=== PATIENT | male | born 1935 | race Caucasian/White ===

== ENCOUNTER 2017-11-23 08:36 | Outpatient (CLI) | payer MEDICARE, OTHER ==
--- NOTE | 2017-11-23 09:31 | RAD ---
RIGHT KNEE FOUR VIEWS: History: Knee pain. FINDINGS: There is a small joint effusion. 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 M oderate degenerative disease in the medial compartment. There is no acute displaced fracture or malalignment. Moderate vascular calcifications. 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 There is also a moderate naida nt effusion likely sequellae of underlying degenerative changes. POS: [facility]
== END 2017-11-23 08:37 | disposition home or self-care (01) ==
LOC: RAD-FRANK 08:36
PROVIDERS: ATTEND Nurse Practitioner Family
DX: S89.91XA Unspecified injury of right lower leg, initial encounter (principal); M25.561 Pain in right knee; M25.461 Effusion, right knee; M17.11 Unilateral primary osteoarthritis, right knee

== ENCOUNTER 2018-04-23 10:36 | Emergency (ER) | payer MEDICARE, OTHER ==
[2018-04-23] MEDS ORDERED: Bacitracin Zinc 1 Packet ONE (11:12)
== END 2018-04-23 11:52 | disposition home or self-care (01) ==
LOC: ERS 10:36
DX: T63.441A Toxic effect of venom of bees, accidental (unintentional), initial encounter (principal); I10 Essential (primary) hypertension; E78.5 Hyperlipidemia, unspecified
CPT/HCPCS: 99282

== ENCOUNTER 2018-07-27 15:21 | Emergency (ER) | payer MEDICARE, OTHER ==
[2018-07-27] MEDS ORDERED: Oxymetazoline HCl 0.05% ( 15 ML ) ONE (16:07)
[2018-07-27] MEDS ORDERED: Lisinopril 10 MG TAB ONE (16:29)
[2018-07-27 17:25] LABS: Hemoglobin 12.4 g/dL (14.0-18.0); Mean Corpuscular Hemoglobin 28.7 pg (27.0-31.0); Mean Corpuscular Volume 92.6 fL (78.0-98.0); Mean Platelet Volume 9.9 fL (7.4-10.4); Platelet Count 131 thou/uL (130-400); RBC Distribution Width 13.1 % (11.5-14.5); Red Blood Cell (RBC) Count 4.33 mill/uL (4.70-6.10)
[2018-07-27 17:30] LABS: INR-International Normal Ratio 1.1; PTT 29.9 SEC (22.9-36.1); Prothrombin Time 13.9 SEC (12.0-14.7)
[2018-07-27 17:47] LABS: Eosinophils 1 % (0-10); Lymphocytes 74 % (21-51); MDiff Complete? YES; Monocytes 1 % (0-10); Neutrophil 23 % (42-75); Ovalocytes SLIGHT = 2-5 cells (100X) (0-1/hpf); PLT Morphology Comment Appears Adequate; Polychromasia SLIGHT = 2-3 cells (100X) (0-2/hpf); Reactive Lymphocytes 1 % (0-10)
== END 2018-07-27 17:31 | disposition home or self-care (01) ==
LOC: ERS 15:21
DX: R04.0 Epistaxis (principal); E11.9 Type 2 diabetes mellitus without complications; E78.5 Hyperlipidemia, unspecified; I10 Essential (primary) hypertension; D64.9 Anemia, unspecified; Z79.899 Other long term (current) drug therapy; Z79.4 Long term (current) use of insulin; Z79.82 Long term (current) use of aspirin
CPT/HCPCS: 36415; 83880; 85025; 85610; 85730; 99285

== ENCOUNTER 2018-07-30 10:48 | Emergency (ER) | payer MEDICARE, OTHER | END 2018-07-30 12:10 | disposition home or self-care (01) | LOC: ERS 10:48 | DX: Z48.01 Encounter for change or removal of surgical wound dressing (principal); E11.9 Type 2 diabetes mellitus without complications; E78.5 Hyperlipidemia, unspecified; D64.9 Anemia, unspecified; I10 Essential (primary) hypertension; Z79.899 Other long term (current) drug therapy; Z79.4 Long term (current) use of insulin; Z79.82 Long term (current) use of aspirin | CPT/HCPCS: 99282 ==

== ENCOUNTER 2019-01-24 13:26 | Outpatient (CLI) | payer MEDICARE, OTHER ==
--- NOTE | 2019-01-24 14:26 | CT ---
CT BRAIN WITHOUT CONTRAST: HISTORY: Memory problems. FINDINGS: There are changes of cortical atrophy and chronic small vessel ischemic disease. The ventricular siz e is appropriate, and the basilar cisterns are patent. No evidence of acute infarct, hemorrhage, mid line shift, or abnormal extraaxial fluid collection is seen. The bony calvarium is intact. The visu alized paranasal sinuses and mastoid air cells are well aerated. IMPRESSION: 1. Cortical atrophy. 2. Chronic small vessel ischemic disease. 3. No CT evidence of acute intracranial process. POS: [facility]
== END 2019-01-24 13:27 | disposition home or self-care (01) ==
LOC: BICCT 13:26
PROVIDERS: ATTEND Psychiatry & Neurology Neurology
DX: R41.3 Other amnesia (principal); G31.9 Degenerative disease of nervous system, unspecified; I67.82 Cerebral ischemia
CPT/HCPCS: 70450

== ENCOUNTER 2019-08-18 11:56 | Inpatient (IN) | payer MEDICARE, OTHER ==
[2019-08-18] MEDS ORDERED: Aspirin 325 MG TAB ONE (12:46)
[2019-08-18 12:56] LABS: INR-International Normal Ratio 1.1; Mean Corpuscular HGB CONC 32.6 g/dL (32.0-36.0); Mean Corpuscular Hemoglobin 29.9 pg (27.0-31.0); Mean Corpuscular Volume 91.8 fL (78.0-98.0); Mean Platelet Volume 8.5 fL (7.4-10.4); PTT 29.8 SEC (22.9-36.1); Platelet Count 128 thou/uL (130-400); RBC Distribution Width 12.8 % (11.5-14.5); Red Blood Cell (RBC) Count 4.02 mill/uL (4.70-6.10); White Blood Cell (WBC) Count 27.3 thou/uL (4.8-10.8)
[2019-08-18 13:19] LABS: ALT (SGPT) 9 U/L (8-55); AST (SGOT) 15 U/L (5-34); Albumin 3.7 g/dL (3.4-4.8); Alkaline Phosphatase 74 U/L (40-110); Anion Gap 9 mmol/L (10-20); BUN (Urea Nitrogen) 23 mg/dL (8.4-25.7); Bilirubin, Total 1.1 mg/dL (0.2-1.2); Calc. Creatinine Clearance 0 mL/min (70-130); Calcium 8.9 mg/dL (7.8-10.44); Carbon Dioxide 27 mmol/L (23-31); Chloride 108 mmol/L (98-107); Estimated GFR-MDRD 61; Globulin 1.9 g/dL (2.4-3.5); Glucose 194 mg/dL (83-110); Potassium 4.6 mmol/L (3.5-5.1); Protein, Total 5.6 g/dL (5.8-8.1); Sodium 139 mmol/L (136-145)
[2019-08-18 13:24] LABS: Band 4 % (5-11); Elliptocytes SLIGHT = 2-5 cells (100X) (0-1/hpf); Lymphocytes 24 % (21-51); MDiff Complete? YES; Monocytes 2 % (0-10); Neutrophil 23 % (42-75); Platelet Morphology Comment Appears Decreased; Polychromasia SLIGHT = 2-3 cells (100X) (0-2/hpf); Reactive Lymphocytes 47 % (0-10); Reflex for Review?? NO; Tear Drops SLIGHT = 2-5 cells (100X) (0-1/hpf)
--- NOTE | 2019-08-18 13:57 | CT ---
Exam: Head CT without contrast HISTORY: Headache COMPARISON: 01/24/2019 FINDINGS: Hemorrhage: No intraparenchymal hemorrhage centered in the right occipital parietal region. Associate d edema. Associated sulcal effacement without midline shift. Hematoma measures 2.9 x 5.7 cm. Brain parenchyma: There is sulcal effacement and loss of pedraza-white matter differentiation in the rig ht occipital-parietal region. Remainder the cerebrum demonstrates preservation of cortical pedraza-white matter differentiation. White matter hypodensities due to chronic small vessel ischemic ch lisette. Ventricular system: Ventricles and sulci are patent and symmetric. Calvarium: Intact. Sinuses and mastoid air cells: Adequate aeration. IMPRESSION: Right cerebral parenchymal hemorrhage. Results of study discussed with Dr. Espinoza 08/18/2019 at 1:52 PM Code CR
[2019-08-18] MEDS ORDERED: Milk Of Magnesia 30 ML UDCUP PO PRN (14:53)
[2019-08-18] MEDS ORDERED: niCARdipine 25 MG in Sodium Chloride 0.9% 250 ML 250 ML IVPB PRN (14:53)
[2019-08-18] MEDS ORDERED: Mag-Al 1200 mg/1200 mg/30 ML UDCUP PO PRN (14:53)
[2019-08-18] MEDS ORDERED: Ondansetron PF 4 MG/2 ML Vial IVP PRN (14:53)
[2019-08-18] MEDS ORDERED: Labetalol HCl 100 MG/20 ML VIAL SLOW IVP PRN (14:53)
[2019-08-18] MEDS ORDERED: Dextrose 5% in Water 1,000 ML IV PRN (15:41)
[2019-08-18] MEDS ORDERED: Insulin Regular 300 UNITS/3 ML VIAL SC PRN (15:41)
[2019-08-18] MEDS ORDERED: Dextrose 50% Abboject 50 ML SYRINGE SLOW IVP PRN (15:41)
[2019-08-18] MEDS ORDERED: Loratadine 10 MG TAB PO PRN (16:15)
--- NOTE | 2019-08-18 16:29 | MRI ---
EXAM: MRI of the brain without and with contrast HISTORY: Right parieto-occipital intracranial hemorrhage COMPARISON: CT brain 08/18/2019 TECHNIQUE: Multiplanar multisequence MR images were obtained of the brain without and with IV contras t. FINDINGS: There is a large focus of slightly high T1 and high T2 signal in the right parietal-occipital lobe. T his demonstrates susceptibility artifact and is consistent with the intracranial hemorrhage. This has not changed significantly in size compared to the prior examination. There are other scattered ar eas of susceptibility artifact in the brain. These may resent other areas of hemosiderin deposition. Scattered foci of high T2/FLAIR signal in the subcortical and periventricular white matte r are likely secondary to small vessel ischemic disease. No restricted diffusion. There is a small area of enhancement along the posterior aspect of the hemorrhage measuring approxima tely 9 mm in size. No hydronephrosis. No extra-axial fluid collection. The expected flow voids are present. Corpus callosum, pituitary, and craniocervical junction are within normal limits. The calvarium and overlying soft tissues are unremarkable. The paranasal sinuses and mastoid air cells are well aerated. IMPRESSION: Multifocal areas of hemosiderin deposition may suggest amyloidosis. There is a small area of enhancem ent in the region of the acute intracranial hemorrhage. This could potentially represent a small cavernoma.
[2019-08-18] MEDS: Tamsulosin HCl 0.4 MG CAP PO SCH (20:39)
[2019-08-18] MEDS: Acetaminophen/Codeine 30-300mg Tablet PO PRN (20:39)
[2019-08-18] MEDS: Famotidine/PF 20 mg/2ml Vial SLOW IVP SCH (20:39)
[2019-08-18] MEDS: Atorvastatin Calcium 40 MG TAB PO SCH (20:40)
--- NOTE | 2019-08-18 22:15 | HP ---
HISTORY OF PRESENT ILLNESS: The patient is an 83-year-old male with a past medical history of type 2 diabetes, hypertension, hyperlipidemia, who presented to the emergency department in care of his daughter after developing some right-sided head and neck pain, some left-sided visual deficits and some clumsiness with the left upper extremity. The patient reports that these developed last night. However, the daughter was not notified about them until today. She brought her father to the emergency department for further evaluation. Noncontrast CT head was done on arrival, which is notable for an acute right-sided intracranial hemorrhage in the right parieto-occipital region. There is no mass effect or midline shift. The patient is not significantly hypertensive on arrival. His platelets are 128. His coags are normal. His labs are notable for elevated WBC at 27,000. I visited the patient at the bedside. He has a GCS of 15. His neurologic exam is notable for left-sided peripheral field deficits and dysmetria in the left upper extremity. PAST MEDICAL HISTORY: Hypertension, hyperlipidemia, type 2 diabetes. PAST SURGICAL HISTORY: Right leg surgery, prostate surgery, right eye surgery. SOCIAL HISTORY: The patient lives at home with his family. Does not smoke, drink, or use any drugs. REVIEW OF SYSTEMS: Per HPI. CURRENT MEDICATIONS: 1. Humulin. 2. Steroid. 3. Simvastatin. 4. Aspirin 81 mg. 5. Lisinopril. 6. Januvia. 7. Donepezil. ALLERGIES: HE HAS NO KNOWN DRUG ALLERGIES. PHYSICAL EXAMINATION: CONSTITUTIONAL: No acute distress. GCS 15. Oriented to person, place, and time. HEENT: Head, normocephalic and atraumatic. Eyes, pupils are equal and reactive. Extraocular movements are intact. The patient does have decreased peripheral vision noted on the left. ENT, oral mucosa is pink, intact, and moist. He has a normal voice. NECK: Nontender to palpation. No meningismus or nuchal rigidity. RESPIRATORY: Symmetric chest expansion. No evidence of dyspnea. CARDIOVASCULAR: Regular rate and rhythm. MUSCULOSKELETAL: He has free active range of motion of all extremities. No focal motor weakness. NEUROLOGIC: A and O x4. GCS 15. Normal speech. He have some dysmetria in the left upper extremity with [id number]. ASSESSMENT AND PLAN: This is an 83-year-old male, who developed some left peripheral field deficits as well as some clumsiness in the left upper extremity yesterday evening. His CT is notable for acute intracranial hemorrhage in the right parieto-occipital region. There is no significant mass effect. The patient has normal coags and platelets and no history of bleeding disorders. No cancer history reported and no obvious underlying mass. He has had a white blood cell count, which is elevated of unclear etiology, but is afebrile here in the ED. We will plan to admit the patient to the ICU for close monitoring q.1 neuro checks. I will repeat a noncontrast head CT for repeat evaluation of his intracranial hemorrhage. I will also get an MRI of the brain with and without contrast for additional evaluation although this ICH likely represent amyloid. We will plan to keep the systolic blood pressure less than 150 and stop his daily aspirin. The patient should not get any anticoagulants or any antiplatelet drugs. Discussed this plan with Dr. Hernández and we will ask the medical team to assist with medical management. Job ID: [id number] MTDD
[2019-08-19 05:48] LABS: Anion Gap 13 mmol/L (10-20); BUN (Urea Nitrogen) 22 mg/dL (8.4-25.7); Calc. Creatinine Clearance 53 mL/min (70-130); Calcium 9.3 mg/dL (7.8-10.44); Carbon Dioxide 27 mmol/L (23-31); Chloride 104 mmol/L (98-107); Estimated GFR-MDRD 61; Glucose 143 mg/dL (83-110); Potassium 4.1 mmol/L (3.5-5.1); Sodium 140 mmol/L (136-145)
[2019-08-19 06:21] LABS: Band 3 % (5-11); Hemoglobin 12.4 g/dL (14.0-18.0); Lymphocytes 47 % (21-51); MDiff Complete? YES; Mean Corpuscular HGB CONC 32.3 g/dL (32.0-36.0); Mean Corpuscular Hemoglobin 29.7 pg (27.0-31.0); Mean Platelet Volume 9.2 fL (7.4-10.4); Monocytes 4 % (0-10); Neutrophil 27 % (42-75); Platelet Count 135 thou/uL (130-400); Platelet Morphology Comment Appears Adequate; RBC Distribution Width 12.9 % (11.5-14.5); Reactive Lymphocytes 19 % (0-10); Red Blood Cell (RBC) Count 4.17 mill/uL (4.70-6.10); White Blood Cell (WBC) Count 29.6 thou/uL (4.8-10.8)
--- NOTE | 2019-08-19 08:50 | PDOC.HOSPP ---
- Subjective Encounter Date: 08/18/19 Encounter Time: 18:00 Subjective: Patient seen and examined for med mngt. Headache slightly better. No CP/SOB. No new complaints. No overnight events - Objective Vital Signs & Weight: Vital Signs (12 hours) Temp Pulse Ox 08/19/19 08:00 98.4 F 08/19/19 07:26 99 08/19/19 04:00 97.6 F 08/19/19 00:00 97.9 F Weight Weight 169 lb 15.622 oz Most Recent Monitor Data Heart Rate from ECG 57 NIBP 141/67 NIBP BP-Mean 91 Respiration from ECG 6 SpO2 95 I&O: 08/18/19 08/19/19 08/20/19 06:59 06:59 06:59 Intake Total 900 Output Total 900 0 Balance 0 0 Result Diagrams: 08/19/19 04:42 08/19/19 04:42 Additional Labs: Accuchecks 08/18/19 08/18/19 08/18/19 20:32 16:37 16:22 POC Glucose 335 H 165 H 182 H Radiology Reviewed by me: Yes (CT brain - ICH) EKG Reviewed by me: Yes (Tele SR) Hospitalist ROS - Review of Systems Respiratory: denies: cough, dry, shortness of breath, hemoptysis, SOB with excertion, pleuritic pain, sputum, wheezing, other Cardiovascular: denies: chest pain, palpitations, orthopnea, paroxysmal noc. dyspnea, edema, light headedness, other Gastrointestinal: denies: nausea, vomiting, abdominal pain, diarrhea, constipation, melena, hematochezia, other - Medication Medications: Active Medications Generic Name Dose Route Start Last Admin Trade Name Freq PRN Reason Stop Dose Admin Acetaminophen/Codeine Phosphate 1 tab 08/18/19 14:57 08/18/19 20:39 Tylenol #3 PO 1 tab Q4H PRN Administration Moderate Pain (4-6) Atorvastatin Calcium 40 mg 08/18/19 21:00 08/18/19 20:40 Lipitor PO 40 mg HS ANNA Administration Famotidine 20 mg 08/18/19 21:00 08/18/19 20:39 Pepcid SLOW IVP 20 mg Q12HR ANNA Administration Insulin Human Regular 0 units 08/18/19 15:41 08/18/19 20:44 Humulin R SC 4 unit .BEDTIME SLIDING SC PRN Administration Bedtime Correctional Scale Tamsulosin HCl 0.4 mg 08/18/19 21:00 08/18/19 20:39 Flomax PO 0.4 mg HS ANNA Administration - Exam General Appearance: NAD Heart: RRR, no gallops Respiratory: CTAB, no rales Gastrointestinal: soft, non-tender, normal bowel sounds Extremities: no edema Psychiatric: normal affect, A&O x 3 Hosp A/P - Plan DVT proph w/SCDs DM2 with diabetic retinopathy HTN BPH Chronic lymphocytosis h/o Tobacco dep Diverticulosis Dementia PLAN: Moderate sliding scale Restart Lisinopril/Statins/Flomax Cont Neurochecks Cont current PRN meds
[2019-08-19] MEDS: Famotidine/PF 20 mg/2ml Vial SLOW IVP SCH (08:54)
[2019-08-19] MEDS: Lisinopril 10 MG TAB PO SCH (08:54)
[2019-08-19] MEDS: Finasteride 5 MG TAB PO SCH (09:07)
[2019-08-19] MEDS: Donepezil HCl 5 MG TAB PO SCH (09:07)
--- NOTE | 2019-08-19 09:30 | CT ---
PRELIMINARY REPORT/[facility]/EMERGENCY AFTER HOURS PROCEDURE: Comparison made to 08/18/19. Overall hematoma appearance remains unchanged. Addendum electronically signed by Omero Carcamo M.D. on August 19, 2019 5:29:06 AM ROPE MAKER This report was discussed with Shelia Macedo RN by Jes Lazo on Aug 19, 2019 05:11:00 ROPE MAKER. Addendum electronically signed by Jes Lazo on August 19, 2019 5:11:21 AM ROPE MAKER EXAM: CT Head Without Intravenous Contrast. CLINICAL HISTORY: FOLLOW UP ICH TECHNIQUE: Axial computed tomography images of the head/brain without intravenous contrast. COMPARISON: None provided. FINDINGS: BRAIN: There is acute intraparenchymal hematoma within the right posterior parietal cortex measuring 5.8 x 3.8 cm with surrounding edema and fluid. VENTRICLES: No hydrocephalus. ORBITS: The orbits are unremarkable. SINUSES AND MASTOIDS: The paranasal sinuses and mastoid air cells are clear. SOFT TISSUES: No significant facial or scalp soft tissue swelling evident. No radiopaque foreign body is seen. BONES: No acute skull fracture. IMPRESSION: Acute right intraparenchymal hematoma with surrounding fluid. ELECTRONICALLY SIGNED BY: Omero Carcamo M.D. Aug 19, 2019 4:54:16 AM ROPE MAKER This report is intended for review by the ordering physician only, in accordance of law. If you recei ve this report in error, please call [facility] at [phone]. FINAL REPORT EMERGENCY AFTER HOURS CT BRAIN WITHOUT CONTRAST: COMPARISON: 08/18/19 at 1342 hours FINDINGS/IMPRESSION: I agree with the findings and impression given in the preliminary report per [facility] physici an. There is a right parietooccipital intracranial hemorrhage. When compared to the prior examination, th is has gotten slightly larger in size.
--- NOTE | 2019-08-19 11:02 | PRG ---
DATE OF SERVICE: 08/19/2019 SUBJECTIVE: The patient is seen and examined, I agree with Farideh Spivey's evaluation on 08/18/2019. The patient is an 83-year-old man, who presented with visual obscurity particularly on the left side and was found to have a right intracranial hemorrhage occipitally. He is alert and interactive. CT and MRI were reviewed suggesting a right parieto-occipital hemorrhage, stable on followup CT and without meaningful mass effect. MRI suggest amyloid angiopathy. 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 No need for surgical intervention. Recommend followup CT in 4 weeks. I have discussed Medicine Service will take over his primary and transfer to the Stroke for today. Job ID: [id number]
[2019-08-19] MEDS: Insulin Regular 300 UNITS/3 ML VIAL SC PRN ×2 (12:14→16:36)
[2019-08-19] MEDS ORDERED: Insulin Glargine 6 UNITS in Pre-Filled Syringe 1 EACH SC SCH (13:45)
--- NOTE | 2019-08-19 15:17 | PDOC.HOSPP ---
- Subjective Encounter Date: 08/19/19 Encounter Time: 15:16 Subjective: Patient seen and examined for med mngt. Headache improving. No new focal deficits. No new complaints. No overnight events - Objective Vital Signs & Weight: Vital Signs (12 hours) Temp Pulse Pulse BP BP BP Pulse Ox 08/19/19 12:00 98.4 F 08/19/19 09:16 73 129/64 160/82 H 08/19/19 09:10 68 76 129/64 160/82 H 08/19/19 08:54 141/67 H 08/19/19 08:00 98.4 F 08/19/19 07:26 99 08/19/19 04:00 97.6 F Weight Weight 169 lb 15.622 oz Most Recent Monitor Data Heart Rate from ECG 73 NIBP 151/71 NIBP BP-Mean 97 Respiration from ECG 8 SpO2 95 I&O: 08/18/19 08/19/19 08/20/19 06:59 06:59 06:59 Intake Total 900 240 Output Total 900 550 Balance 0 -310 Result Diagrams: 08/19/19 04:42 08/19/19 04:42 Additional Labs: Accuchecks 08/18/19 08/18/19 08/18/19 20:32 16:37 16:22 POC Glucose 335 H 165 H 182 H Radiology Reviewed by me: Yes (CT brain - ICH) EKG Reviewed by me: Yes (Tele SR) Hospitalist ROS - Review of Systems Respiratory: denies: cough, dry, shortness of breath, hemoptysis, SOB with excertion, pleuritic pain, sputum, wheezing, other Cardiovascular: denies: chest pain, palpitations, orthopnea, paroxysmal noc. dyspnea, edema, light headedness, other Gastrointestinal: denies: nausea, vomiting, abdominal pain, diarrhea, constipation, melena, hematochezia, other - Medication Medications: Active Medications Generic Name Dose Route Start Last Admin Trade Name Freq PRN Reason Stop Dose Admin Acetaminophen/Codeine Phosphate 1 tab 08/18/19 14:57 08/18/19 20:39 Tylenol #3 PO 1 tab Q4H PRN Administration Moderate Pain (4-6) Atorvastatin Calcium 40 mg 08/18/19 21:00 08/18/19 20:40 Lipitor PO 40 mg HS ANNA Administration Donepezil HCl 5 mg 08/19/19 09:00 08/19/19 09:07 Aricept PO 5 mg DAILY ANNA Administration Finasteride 5 mg 08/19/19 09:00 08/19/19 09:07 Proscar PO 5 mg DAILY ANNA Administration Insulin Glargine 6 units/ 0.06 mls @ 0 mls/hr 08/19/19 13:45 08/19/19 14:06 Miscellaneous Medication SC 08/19/19 16:00 0.06 mls NOW ANNA Administration Insulin Human Regular 0 units 08/18/19 15:41 08/19/19 12:14 Humulin R SC 4 unit .MODERATE SLIDING SC PRN Administration Moderate Correctional Scale Insulin Human Regular 0 units 08/18/19 15:41 08/18/19 20:44 Humulin R SC 4 unit .BEDTIME SLIDING SC PRN Administration Bedtime Correctional Scale Lisinopril 10 mg 08/19/19 09:00 08/19/19 08:54 Zestril PO 10 mg DAILY ANNA Administration Tamsulosin HCl 0.4 mg 08/18/19 21:00 08/18/19 20:39 Flomax PO 0.4 mg HS ANNA Administration - Exam General Appearance: NAD Heart: RRR, no gallops Respiratory: CTAB, no rales Gastrointestinal: soft, non-tender, normal bowel sounds Extremities: no edema Hosp A/P - Plan DVT proph w/SCDs ICH due to amyloid angiopathy (POA) DM2 with diabetic retinopathy HTN BPH Chronic lymphocytosis Diverticulosis Dementia h/o Tobacco dep PLAN: Cont moderate sliding scale Restart Long acting insulin in AM based on blood sugars today Cont Lisinopril/Statins/Flomax Transfer to stroke unit Cont current PRN meds
[2019-08-19] MEDS: Insulin Regular 300 UNITS/3 ML VIAL SC SCH (16:36)
--- NOTE | 2019-08-19 18:07 | CON ---
DATE OF CONSULTATION: 08/19/2019 SERVICE: Pulmonary Medicine. REASON FOR CONSULTATION: ICU patient. HISTORY OF PRESENT ILLNESS: The patient is an 83-year-old white male with past medical history significant for essentially nothing. He is in his usual state of health when he had an abrupt onset of neurologic changes. He presented to the emergency department, was discovered to have new-onset hemorrhagic lesion. He has been watched very closely and remains stable from a neurologic standpoint. Prior to this event, he was not sick in any way. He denies any current recent fevers, chills, nausea, vomiting, cough, sputum production, chest discomfort, belly problems, or hot red swollen joints, otherwise. He has a good appetite. He has been able to tolerate p.o. PAST MEDICAL HISTORY: 1. Hypertension. 2. Dyslipidemia. 3. Type 2 diabetes mellitus. 4. History of CVA. PAST SURGICAL HISTORY: 1. Right leg surgery. 2. Prostate surgery. 3. Right eye surgery. SOCIAL HISTORY: The patient does not use any alcohol, tobacco, or illicit drugs. He has no exposure to chemicals, dust, asbestos, or tuberculosis. He currently lives at home with his family. FAMILY HISTORY: Noncontributory. ALLERGIES: NO KNOWN DRUG ALLERGIES. MEDICATIONS: List of his inpatient medications were reviewed. No specific updates were made at this time. REVIEW OF SYSTEMS: General, head, ears, eyes, nose, throat, cardiovascular, respiratory, GI, , musculoskeletal, neurologic, and skin is negative except as mentioned in the HPI. PHYSICAL EXAMINATION: VITAL SIGNS: Afebrile, pulse 73, blood pressure 151/71, respirations 8, and saturation 99% on room air. GENERAL: The patient is awake and alert, in no apparent distress. LUNGS: Very good air entry. No prolonged expiratory phase or wheezing is present. There are no rhonchi or crackles present. HEART: Normal rate, regular. ABDOMEN: Soft, nontender, and nondistended. Bowel sounds are positive. MUSCULOSKELETAL: No cyanosis or clubbing. There is no pitting in bilateral lower extremities. NEUROLOGIC: He has a subtle right-sided hemianopsia. Outside of this, he really does not have much in the way of neurologic deficits in strength, or sensation. Cranial nerves II through XII are intact. LABORATORY DATA: WBC 29.6, hemoglobin 12.4, and platelets 135,000. Neutrophils are 27% on top of 3% bands. He has significant lymphocytosis with reactive lymphocytes present. His white blood cell count is at baseline. INR 1.1. Basic metabolic profile and liver function studies are completely unremarkable. CRP is less than the assay limit of 0.5. IMAGING: CT brain demonstrates a right occipital hemorrhagic lesion, which has evolved and gotten slightly larger compared to prior. ASSESSMENT: 1. Intraparenchymal hemorrhage. 2. Dementia. 3. Type 2 diabetes mellitus. DISCUSSION AND PLAN: At this point, the patient is being transitioned out of the ICU to the Stroke Unit. We will continue working to keep his systolic blood pressures under 140. Anticoagulation will be held. When he leaves the ICU, he will have no further requirements for inpatient Pulmonary or Critical Care opinion, and I will sign off. Please call with additional questions or concerns through time. 70 minutes have been devoted to this patient in various activities. I personally reviewed all imaging studies and laboratory data noted within this document. For fifty percent of this time, I was interacting with the patient at the bedside or coordinating care with the care team. For the remainder of the time I was immediately available to the patient in the hospital unit. Job ID: [id number] MTDD
[2019-08-19] MEDS: Senokot S 8.6-50 MG TAB PO SCH (22:21)
[2019-08-19] MEDS: Tamsulosin HCl 0.4 MG CAP PO SCH (22:21)
[2019-08-19] MEDS: Acetaminophen 325 MG TAB PO PRN (22:21)
[2019-08-19] MEDS: Atorvastatin Calcium 40 MG TAB PO SCH (22:21)
[2019-08-20] MEDS: Acetaminophen 325 MG TAB PO PRN (06:29)
[2019-08-20] MEDS: Insulin Regular 300 UNITS/3 ML VIAL SC PRN ×2 (06:33→11:50)
[2019-08-20] MEDS: Insulin Regular 300 UNITS/3 ML VIAL SC SCH ×4 (07:59→20:35)
[2019-08-20] MEDS: Famotidine 20 MG TAB PO SCH (08:25)
[2019-08-20] MEDS: Lisinopril 10 MG TAB PO SCH (08:25)
[2019-08-20] MEDS: Senokot S 8.6-50 MG TAB PO SCH ×2 (08:26→20:35)
[2019-08-20] MEDS: Finasteride 5 MG TAB PO SCH (08:26)
[2019-08-20] MEDS: Donepezil HCl 5 MG TAB PO SCH (08:32)
[2019-08-20] MEDS: Insulin Glargine 6 UNITS in Pre-Filled Syringe 1 EACH SC SCH (09:08)
[2019-08-20] MEDS: Acetaminophen/Codeine 30-300mg Tablet PO PRN (10:20)
--- NOTE | 2019-08-20 12:49 | PRG ---
DATE OF SERVICE: 08/20/2019 SERVICE: Pulmonary Medicine. INTERVAL HISTORY: The patient is doing great from respiratory standpoint. Mentation parker, things are basically at baseline. He has a fairly dense left hemianopia. Otherwise, there has been no interval change to his condition. Neurologically, he remains stable. PHYSICAL EXAMINATION: VITAL SIGNS: Afebrile, pulse 68, blood pressure 142/64, respirations 17, and saturation 96% on room air. GENERAL: The patient is awake and alert, in no apparent distress. LUNGS: Decent air entry. No prolonged expiratory phase or wheezing is appreciated. HEART: Normal rate and regular. ABDOMEN: Soft, nontender, and nondistended. Bowel sounds are positive. MUSCULOSKELETAL: No cyanosis or clubbing. There is no pitting in the bilateral lower extremities. NEUROLOGIC: He has a left-sided hemianopsia. Otherwise, it is nonfocal. ASSESSMENT: 1. Intraparenchymal hemorrhage of the right occipital region. 2. Dementia. 3. Type 2 diabetes mellitus. 4. Leukocytosis, chronic. DISCUSSION AND PLAN: The patient is stable for transition out of the ICU to the stroke unit. When he leaves the ICU, he will have no further requirements for inpatient Pulmonary/Critical Care opinion, and I will sign off. Aggressive mobilization efforts will be continued. If he remains in this location, I will continue to follow. Job ID: [id number]
[2019-08-20] MEDS: Atorvastatin Calcium 40 MG TAB PO SCH (20:35)
[2019-08-20] MEDS: Tamsulosin HCl 0.4 MG CAP PO SCH (20:35)
--- NOTE | 2019-08-20 22:52 | PDOC.HOSPP ---
- Subjective Encounter Date: 08/20/19 Encounter Time: 10:30 Subjective: Patient seen and examined for ICH. No CP. Headache improving. No new complaints. No overnight events - Objective Vital Signs & Weight: Vital Signs (12 hours) Temp Pulse Ox 08/20/19 20:00 99 08/20/19 12:00 98.3 F Weight Weight 168 lb 13.985 oz Most Recent Monitor Data Heart Rate from ECG 76 NIBP 125/51 NIBP BP-Mean 75 Respiration from ECG 18 SpO2 95 I&O: 08/19/19 08/20/19 08/21/19 06:59 06:59 06:59 Intake Total 900 780 960 Output Total 900 1100 625 Balance 0 -320 335 Result Diagrams: 08/19/19 04:42 08/19/19 04:42 Additional Labs: Accuchecks 08/19/19 23:44 POC Glucose 173 H EKG Reviewed by me: Yes (Tele SR) Hospitalist ROS - Review of Systems Respiratory: denies: cough, dry, shortness of breath, hemoptysis, SOB with excertion, pleuritic pain, sputum, wheezing, other Cardiovascular: denies: chest pain, palpitations, orthopnea, paroxysmal noc. dyspnea, edema, light headedness, other Gastrointestinal: denies: nausea, vomiting, abdominal pain, diarrhea, constipation, melena, hematochezia, other - Medication Medications: Active Medications Generic Name Dose Route Start Last Admin Trade Name Freq PRN Reason Stop Dose Admin Acetaminophen 650 mg 08/18/19 14:58 08/20/19 06:29 Tylenol PO 650 mg Q6H PRN Administration Pain Acetaminophen/Codeine Phosphate 1 tab 08/18/19 14:57 08/20/19 10:20 Tylenol #3 PO 1 tab Q4H PRN Administration Moderate Pain (4-6) Atorvastatin Calcium 40 mg 08/18/19 21:00 08/20/19 20:35 Lipitor PO 40 mg HS ANNA Administration Donepezil HCl 5 mg 08/19/19 09:00 08/20/19 08:32 Aricept PO 5 mg DAILY ANNA Administration Famotidine 20 mg 08/20/19 09:00 08/20/19 08:25 Pepcid PO 20 mg DAILY ANNA Administration Finasteride 5 mg 08/19/19 09:00 08/20/19 08:26 Proscar PO 5 mg DAILY ANNA Administration Insulin Glargine 6 units/ 0.06 mls @ 0 mls/hr 08/20/19 09:00 08/20/19 09:08 Miscellaneous Medication SC 0.06 mls QAM ANNA Administration Insulin Human Regular 0 units 08/18/19 15:41 08/20/19 11:50 Humulin R SC 4 unit .MODERATE SLIDING SC PRN Administration Moderate Correctional Scale Insulin Human Regular 0 units 08/18/19 15:41 08/18/19 20:44 Humulin R SC 4 unit .BEDTIME SLIDING SC PRN Administration Bedtime Correctional Scale Insulin Human Regular 2 units 08/19/19 17:00 08/20/19 20:35 Humulin R SC 2 unit AC ANNA Administration Lisinopril 10 mg 08/19/19 09:00 08/20/19 08:25 Zestril PO 10 mg DAILY ANNA Administration Senna/Docusate Sodium 1 tab 08/19/19 21:00 08/20/19 20:35 Senokot S PO 1 tab BID ANNA Administration Tamsulosin HCl 0.4 mg 08/18/19 21:00 08/20/19 20:35 Flomax PO 0.4 mg HS ANNA Administration - Exam General Appearance: NAD Heart: RRR, no gallops Respiratory: CTAB, no rales Gastrointestinal: soft, non-distended Extremities: no edema Neurological: no new deficit Hosp A/P - Plan DVT proph w/SCDs ICH due to amyloid angiopathy (POA) DM2 with diabetic retinopathy HTN BPH Chronic lymphocytosis Diverticulosis Dementia h/o Tobacco dep PLAN: Cont Lisinopril/Statins/Flomax Cont Lantus Cont moderate sliding scale Cont other meds Await stroke unit bed Cont current PRN meds
[2019-08-21] MEDS: Insulin Regular 300 UNITS/3 ML VIAL SC PRN ×3 (05:57→16:59)
[2019-08-21] MEDS: Finasteride 5 MG TAB PO SCH (08:33)
[2019-08-21] MEDS: Lisinopril 10 MG TAB PO SCH (08:33)
[2019-08-21] MEDS: Donepezil HCl 5 MG TAB PO SCH (08:33)
[2019-08-21] MEDS: Insulin Glargine 6 UNITS in Pre-Filled Syringe 1 EACH SC SCH (08:34)
[2019-08-21] MEDS: Famotidine 20 MG TAB PO SCH (08:34)
[2019-08-21] MEDS: Senokot S 8.6-50 MG TAB PO SCH ×2 (08:34→21:03)
[2019-08-21] MEDS: Insulin Regular 300 UNITS/3 ML VIAL SC SCH ×2 (11:57→16:59)
--- NOTE | 2019-08-21 15:37 | PRG ---
DATE OF SERVICE: 08/21/2019 SERVICE: Pulmonary Medicine. INTERVAL HISTORY: The patient is doing really quite well from respiratory standpoint. He is little bit more somnolent today. This started after he got a dose of codeine. Otherwise, there has been no more change to his condition. He has chronic neck discomfort. Unfortunately, we can give what he typically takes at home because of his anti-platelet effect. PHYSICAL EXAMINATION: VITAL SIGNS: Afebrile. Pulse 86, blood pressure 139/77, respirations 15, saturation 96%, currently on room air. GENERAL: The patient is somnolent, but he wakes up comfortably. He follows all commands and does not appear to be in any distress. Lungs: Wonderful air entry. No prolonged expiratory phase. Dependent crackles are appreciated. HEART: Normal rate and regular. ABDOMEN: Soft, nontender, nondistended. Bowel sounds are positive. MUSCULOSKELETAL: No cyanosis or clubbing. No pitting in the bilateral lower Extremities. NEUROLOGIC: Grossly nonfocal outside of his left hemianopsia. ASSESSMENT: 1. Intraparenchymal hemorrhage of the right occipital region. 2. Dementia. 3. Type 2 diabetes mellitus. 4. Leukocytosis, chronic. DISCUSSION AND PLAN: The patient is stable for transition out of the ICU or even discharge home. When he leaves the ICU, he will have no further requirements for inpatient Pulmonary or Critical Care opinion, and I will sign off. Please call with additional questions or concerns through time. Job ID: [id number]
[2019-08-21] MEDS: Atorvastatin Calcium 40 MG TAB PO SCH (21:03)
[2019-08-21] MEDS: Tamsulosin HCl 0.4 MG CAP PO SCH (21:03)
[2019-08-22 06:33] VITALS: BMI 25.9
[2019-08-22] MEDS: Finasteride 5 MG TAB PO SCH (08:24)
[2019-08-22] MEDS: Lisinopril 10 MG TAB PO SCH (08:24)
[2019-08-22] MEDS: Famotidine 20 MG TAB PO SCH (08:24)
[2019-08-22] MEDS: Donepezil HCl 5 MG TAB PO SCH (08:24)
[2019-08-22] MEDS: Senokot S 8.6-50 MG TAB PO SCH (08:25)
[2019-08-22] MEDS: Insulin Regular 300 UNITS/3 ML VIAL SC SCH ×2 (08:47→10:36)
--- NOTE | 2019-08-22 09:09 | PDOC.HOSPP ---
- Subjective Encounter Date: 08/21/19 Encounter Time: 15:00 Subjective: Patient seen and examined for ICH. Intermittent confusion. No new complaints. No overnight events - Objective Vital Signs & Weight: Vital Signs (12 hours) Temp Pulse Resp BP BP Pulse Ox 08/22/19 08:24 167/78 H 08/22/19 07:49 97.9 F 69 18 160/74 H 96 08/22/19 07:39 96 08/22/19 04:00 97.7 F 68 17 160/74 H 97 Weight Weight 165 lb 4.8 oz Most Recent Monitor Data Heart Rate from ECG 75 NIBP 155/73 NIBP BP-Mean 100 Respiration from ECG 15 SpO2 95 I&O: 08/21/19 08/22/19 08/23/19 06:59 06:59 06:59 Intake Total 1020 720 Output Total 625 650 Balance 395 70 Result Diagrams: 08/19/19 04:42 08/19/19 04:42 Additional Labs: Accuchecks 08/22/19 08/21/19 08/21/19 04:03 21:05 15:17 POC Glucose 165 H 129 H 240 H 08/21/19 08/21/19 08/20/19 11:34 05:59 20:36 POC Glucose 225 H 208 H 195 H 08/20/19 08/20/19 08/20/19 16:06 11:48 06:36 POC Glucose 149 H 230 H 204 H EKG Reviewed by me: Yes (Tele SR) Hospitalist ROS - Review of Systems Respiratory: denies: cough, dry, shortness of breath, hemoptysis, SOB with excertion, pleuritic pain, sputum, wheezing, other Cardiovascular: denies: chest pain, palpitations, orthopnea, paroxysmal noc. dyspnea, edema, light headedness, other - Medication Medications: Active Medications Generic Name Dose Route Start Last Admin Trade Name Freq PRN Reason Stop Dose Admin Acetaminophen 650 mg 08/18/19 14:58 08/20/19 06:29 Tylenol PO 650 mg Q6H PRN Administration Pain Acetaminophen/Codeine Phosphate 1 tab 08/18/19 14:57 08/20/19 10:20 Tylenol #3 PO 1 tab Q4H PRN Administration Moderate Pain (4-6) Atorvastatin Calcium 40 mg 08/18/19 21:00 08/21/19 21:03 Lipitor PO 40 mg HS ANNA Administration Donepezil HCl 5 mg 08/19/19 09:00 08/22/19 08:24 Aricept PO 5 mg DAILY ANNA Administration Famotidine 20 mg 08/20/19 09:00 08/22/19 08:24 Pepcid PO 20 mg DAILY ANNA Administration Finasteride 5 mg 08/19/19 09:00 08/22/19 08:24 Proscar PO 5 mg DAILY ANNA Administration Insulin Glargine 6 units/ 0.06 mls @ 0 mls/hr 08/20/19 09:00 08/21/19 08:34 Miscellaneous Medication SC 0.06 mls QAM ANNA Administration Insulin Human Regular 0 units 08/18/19 15:41 08/21/19 16:59 Humulin R SC 4 unit .MODERATE SLIDING SC PRN Administration Moderate Correctional Scale Insulin Human Regular 0 units 08/18/19 15:41 08/18/19 20:44 Humulin R SC 4 unit .BEDTIME SLIDING SC PRN Administration Bedtime Correctional Scale Insulin Human Regular 2 units 08/19/19 17:00 08/22/19 08:47 Humulin R SC 2 unit AC ANNA Administration Lisinopril 10 mg 08/19/19 09:00 08/22/19 08:24 Zestril PO 10 mg DAILY ANNA Administration Senna/Docusate Sodium 1 tab 08/19/19 21:00 08/22/19 08:25 Senokot S PO Not Given BID ANNA Tamsulosin HCl 0.4 mg 08/18/19 21:00 08/21/19 21:03 Flomax PO 0.4 mg HS ANNA Administration - Exam General Appearance: NAD Heart: RRR, no gallops Respiratory: CTAB, no rales Gastrointestinal: soft, non-tender, normal bowel sounds Extremities: no edema Neurological: no new deficit Hosp A/P - Plan DVT proph w/SCDs 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
[2019-08-22] MEDS: Insulin Glargine 6 UNITS in Pre-Filled Syringe 1 EACH SC SCH (09:39)
[2019-08-22] MEDS: Insulin Regular 300 UNITS/3 ML VIAL SC PRN (10:32)
[2019-08-22 13:59] VITALS: BP 125/70
[2019-08-22 16:09] VITALS: TEMP 97.5
--- NOTE | 2019-08-23 08:43 | DIS ---
DATE OF ADMISSION: 08/18/2019 DATE OF DISCHARGE: 08/22/2019 DISCHARGE DISPOSITION: To inpatient rehabilitation. FOLLOWUP: 1. Follow up with primary care physician, Dr. Chichi Roach in 1 week. 2. Follow up with Dr. Tan as scheduled. 3. Follow up with Dr. Hernández in 2 weeks. The patient was seen and examined on the day of discharge. Denies any new complaints. DISCHARGE MEDICATIONS: 1. Cetirizine as needed. 2. Aricept 5 mg daily. 3. Ferrous sulfate 325 mg daily. 4. Finasteride 5 mg daily. 5. Lisinopril 10 mg daily. 6. Simvastatin 80 mg daily. 7. Flomax 0.4 mg daily. 8. Pepcid 20 mg daily. 9. Lantus 6 units daily. 10. Insulin regular 2 units with each meal. 11. Senokot-S one tablet b.i.d.. SIGNIFICANT LABORATORY DATA: WBC 27.3 with platelets 128. PT, INR, and PTT normal range. Sodium 139, potassium 4.6, BUN 23, and creatinine 1.14. Troponin was negative. CT scan of the brain showed right cerebral parenchymal hemorrhage. MRI of the brain with and without contrast showed multifocal areas of hemosiderin deposition that may suggest amyloidosis. There was a small area of enhancement in the region of acute intracranial hemorrhage. This could potentially represent a small cavernoma. INPATIENT SCRAP DROP OPERATOR: 1. Critical Care, Dr. Mares. 2. Hospitalist Team. BRIEF HOSPITAL COURSE: The patient is an 83-year-old male with dementia, presented to the hospital on 18 August 2019 with right-sided head and neck pain along with some visual deficit and questionable left-sided weakness. His workup was consistent with intracranial hemorrhage. He was admitted by Neurosurgery team to the Intensive Care Unit. Hospitalist Team was consulted for medical management. He was managed conservatively. According to Neurosurgery, his intracranial hemorrhage was secondary to amyloid angiopathy. He will need a repeat CT scan in 4 weeks. He is stable to discharge to inpatient rehabilitation. FINAL DIAGNOSES: 1. 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 2. Diabetes mellitus type 2 with diabetic retinopathy. 3. Hypertension. 4. Benign prostatic hypertrophy. 5. Chronic lymphocytosis. 6. Diverticulosis. 7. Dementia. 8. History of tobacco abuse. TIME SPENT: Total time coordinating the discharge of this patient was 36 minutes. Job ID: [id number]
== END 2019-08-22 17:58 | DRG 546 ==
LOC: ERS 11:56 → CCU 15:17
PROVIDERS: ADMIT Neurological Surgery; ATTEND Neurological Surgery
DX: E85.4 Organ-limited amyloidosis (principal); I62.9 Nontraumatic intracranial hemorrhage, unspecified; F03.90 Unspecified dementia, unspecified severity, without behavioral disturbance, psychotic disturbance, mood disturbance, and anxiety; I68.0 Cerebral amyloid angiopathy; D72.829 Elevated white blood cell count, unspecified; E78.5 Hyperlipidemia, unspecified; I10 Essential (primary) hypertension; D64.9 Anemia, unspecified; D72.820 Lymphocytosis (symptomatic); N40.0 Benign prostatic hyperplasia without lower urinary tract symptoms; K57.90 Diverticulosis of intestine, part unspecified, without perforation or abscess without bleeding; E11.319 Type 2 diabetes mellitus with unspecified diabetic retinopathy without macular edema; Z79.4 Long term (current) use of insulin
CPT/HCPCS: 36415; 36416; 70450; 70553; 80048; 80053; 84484; 85025; 85610; 85652; 85730; 86140; 93005; J1815; S0028

== ENCOUNTER 2019-09-28 13:50 | Outpatient (CLI) | payer MEDICARE, OTHER ==
--- NOTE | 2019-09-28 14:17 | CT ---
EXAM: CT brain without contrast HISTORY: Follow-up parenchymal hemorrhage COMPARISON: CT brain 08/19/2019, MRI brain 08/18/2019 TECHNIQUE: Multiple contiguous axial images were obtained and a CT of the brain without contrast. FINDINGS: There is an evolving area of hypodensity in the right occipital lobe consistent with an cindy lving/resorbing parenchymal hemorrhage. There are scattered hypodensities in the subcortical and periventricular white matter, likely secondary to small vessel ischemic disease. There is no evidence of hydrocephalus, new acute intracranial hemorrhage, or extra-axial fluid collection. The calvarium and overlying soft tissues are unremarkable. The visualized paranasal sinuses and masto id air cells are well aerated. IMPRESSION: Resolving right occipital lobe parenchymal hemorrhage
== END 2019-09-28 13:51 | disposition home or self-care (01) ==
LOC: TBSIIMAG 13:50
PROVIDERS: ATTEND Neurological Surgery
DX: I62.9 Nontraumatic intracranial hemorrhage, unspecified (principal)
CPT/HCPCS: 70450

== ENCOUNTER 2019-11-01 00:57 | Inpatient (IN) | payer MEDICARE, OTHER ==
[2019-11-01 01:32] LABS: ALT (SGPT) 12 U/L (8-55); AST (SGOT) 24 U/L (5-34); Albumin 3.8 g/dL (3.4-4.8); Alkaline Phosphatase 82 U/L (40-110); Anion Gap 15 mmol/L (10-20); BUN (Urea Nitrogen) 28 mg/dL (8.4-25.7); Bilirubin, Total 0.6 mg/dL (0.2-1.2); CK (CPK) 49 U/L (30-200); Calc. Creatinine Clearance 0 mL/min (70-130); Calcium 8.7 mg/dL (7.8-10.44); Carbon Dioxide 22 mmol/L (23-31); Chloride 107 mmol/L (98-107); Estimated GFR-MDRD 69; Globulin 2.4 g/dL (2.4-3.5); Glucose 176 mg/dL (83-110); Potassium 4.1 mmol/L (3.5-5.1); Protein, Total 6.2 g/dL (5.8-8.1); Sodium 140 mmol/L (136-145)
[2019-11-01 01:43] LABS: Actual Bicarbonate (HCO3a) 18.8 mEq/L (22-28); Analyzer IN Cardio ER; Base Excess (BEa) -5.4 mEq/L (-2.0 to +3.0); CO2 Tension 32.7 mmHg (35.0-45.0); Calcium, Ionized 1.14 mmol/L (1.12-1.30); Hemoglobin (Hb) 12.8 g/dL (14.0-18.0); O2 Tension (PaO2) 113.6 mmHg (> 60.0); Potassium - ABG Lab 3.35 mmol/L (3.70-5.30); pH, Arterial 7.38 (7.35-7.45)
[2019-11-01 01:45] LABS: ALV-art Gradient 202.025 (0-20); Puncture Site LRADIAL
[2019-11-01] MEDS ORDERED: niCARdipine 25 MG in Sodium Chloride 0.9% 250 ML 250 ML IVPB PRN (01:59)
[2019-11-01] MEDS ORDERED: Ondansetron PF 4 MG/2 ML Vial IVP PRN (01:59)
[2019-11-01 02:33] LABS: Hemoglobin 12.9 g/dL (14.0-18.0); Mean Corpuscular Hemoglobin 30.9 pg (27.0-31.0); Mean Corpuscular Volume 93.6 fL (78.0-98.0); RBC Distribution Width 13.1 % (11.5-14.5); Red Blood Cell (RBC) Count 4.18 mill/uL (4.70-6.10)
[2019-11-01 02:41] LABS: INR-International Normal Ratio 1.1; Mean Platelet Volume 9.3 fL (7.4-10.4); Platelet Count 134 thou/uL (130-400); Prothrombin Time 13.8 SEC (12.0-14.7)
[2019-11-01 03:00] LABS: White Blood Cell (WBC) Count 39.6 thou/uL (4.8-10.8)
[2019-11-01 03:08] LABS: Lymphocytes 78 % (21-51); MDiff Complete? YES; Neutrophil 22 % (42-75); Platelet Morphology Comment Appears Adequate
[2019-11-01 04:14] LABS: Lactic Acid 1.7 mmol/L (0.5-2.2)
[2019-11-01] MEDS ORDERED: Propofol 1,000 MG/100 ML VIAL IV ONE (04:25)
--- NOTE | 2019-11-01 04:30 | HP ---
HISTORY OF PRESENT ILLNESS: The patient is an 84-year-old male with a past medical history of hypertension, hyperlipidemia, and diabetes, known to us for evaluation of acute right parieto-occipital intracranial hemorrhage in August of 2019. His initial event was characterized by vision changes as well as clumsiness in the left upper extremity. He was evaluated thoroughly during that ICU admission and determined to likely have underlying amyloid as cause for the acute intracranial hemorrhage. He was transitioned to inpatient rehab following this event and improved significantly and was eventually dismissed to home. I followed up with the patient on 09/28/2019, with repeat noncontrast CT head, which showed interval resolution of the prior intracranial hemorrhage. The patient was doing quite well at home, was only complaining of some intermittent memory changes, was referred to Neurology at that time. Brendon, the patient's reports that the patient became confused with vomiting around 10 p.m. this evening. She contacted EMS, who brought the patient to the emergency department. The patient was minimally responsive on arrival per ED physician with a GCS of 4 at that time. He is not opening his eyes, had no verbal, and had some decorticate posturing on the left. He also reportedly had an enlarged right pupil, which was sluggish. He was intubated just prior to my arrival. Noncontrast CT head done on his arrival was notable for a very large acute right parieto-occipital intracranial hemorrhage with significant mass effect and midline shift. The patient does not reportedly take any blood thinners. His 81 mg aspirin was discontinued at his prior visit. PAST MEDICAL HISTORY: Hypertension, hyperlipidemia, type 2 diabetes, prior intracranial hemorrhage and the hemorrhage related to underlying amyloid angiopathy. PAST SURGICAL HISTORY: Right leg surgery, prostate surgery, and right eye surgery. SOCIAL HISTORY: The patient lives at home with his family. He does not smoke, drink, or use any drugs. ALLERGIES: NO KNOWN DRUG ALLERGIES. PHYSICAL EXAMINATION: GENERAL: The patient has recently been intubated just prior to my exam. GCS is currently at 3. Does not open his eyes. He has no verbal function. He is intubated. He is unresponsive to any painful stimuli. PUPILS: The right pupil is just slightly larger than the left, but both are quite small and nonreactive. ENT: An endotracheal tube is in place, and there is no gag reflex at this time during my exam. RESPIRATORY: He is currently being mechanically ventilated with symmetric chest expansion. CARDIOVASCULAR: Regular rate and rhythm. MUSCULOSKELETAL: No obvious deformities. NEUROLOGIC: GCS 3, but neurologic exam is quite limited due to his current condition and recent receival of RSI medications. ASSESSMENT AND PLAN: This is an 84-year-old male, who suffered a massive right parieto-occipital intracranial hemorrhage with mass effect and midline shift. This is a devastating injury, and I have discussed with Dr. Hernández that there is no role for acute neurosurgical operative management at this time. We will continue to support him and mobilize the family. Dr. Hernández will meet with the family in the morning at 0630 hours. I have discussed this with the patient's extensively, and I will also meet with the patient's daughters. Job ID: [id number] [facility]
[2019-11-01] MEDS: Sodium Chloride 0.9% 1,000 ML IV SCH ×2 (05:35→15:41)
--- NOTE | 2019-11-01 08:09 | RAD ---
Portable frontal chest radiograph: 11/01/2019 COMPARISON: 10/11/2013 HISTORY: Central line placement, endotracheal tube placement FINDINGS: Endotracheal tube and nasogastric tube are in proper position. There is a left-sided vascul ar catheter, distal tip overlying the cavoatrial junction region. Supine imaging is provided, limiting assessment for pneumothorax and pleural fluid. No focal consolidation or alveolar edema. Mil d pulmonary vascular prominence and mild elevation of the right hemidiaphragm. IMPRESSION: Lines and tubes as detailed above.
--- NOTE | 2019-11-01 08:09 | CT ---
PRELIMINARY REPORT/[facility]/EMERGENCY AFTER HOURS PROCEDURE: Receipt of this report by the clinical staff was confirmed with Luis Peralta RN by Jes Lazo on 2019 01:27:00 FREELANCE RECRUITER. Addendum electronically signed by Jes Lazo on November 01, 2019 1:28:42 AM FREELANCE RECRUITER EXAM: CT BRAIN WO CON HISTORY: *STROKE ALERT* M84, LAST SEEN NORMAL AT 2130. PATIENT HAD INTRACRAIAL HEMORRHAGE IN AUGUST 2019. PATIENT WAS FOUND IN VOMIT BY . COMPARISON: CT - CT BRAIN WO CON - 08/19/2019 04:[address]\FL\SR - CT BRAIN WO CON - 08/18/2019 01:41 PM FREELANCE RECRUITER FINDINGS: There is acute intraparenchymal hemorrhage within the right parietal occipital and temporal lobes, as well as the right basal ganglia, with associated parenchymal hypodensity and secondary right to left mass-effect, with 12 mm of midline shift. There is mass-effect upon the right lateral ventricle. T here is dependent hyperdensity within the atria of the bilateral lateral ventricles, most compatible with intraventricular blood products. There is sulcal effacement at the vertex. There is no new parenchymal hypodensity within the left hemisphere or posterior fossa. The contents of the orbits are symmetric across the midline. There is mild mucosal sinus disease within the front al sinuses and right maxillary sinus. The calvarium is without acute abnormality. No focal scalp sw elling. IMPRESSION: Extensive acute intraparenchymal hemorrhage within the right hemisphere, as described above, with sec ondary edema, mass-effect, midline shift and sulcal effacement. There is associated parenchymal hypo density which may represent associated edema, infarct, or components of both. Recommend urgent neuro surgical consultation. ELECTRONICALLY SIGNED BY: Dane Lima MD Nov 01, 2019 1:23:11 AM FREELANCE RECRUITER This report is intended for review by the ordering physician only, in accordance of law. If you recei ve this report in error, please call [facility] at [phone]. FINAL REPORT BRAIN CT WITHOUT IV CONTRAST EMERGENT AFTER HOURS TIME: 1:06 AM. DATE: 11/01/2019. FINDINGS: Huge acute intraparenchymal hemorrhage involving the right cerebral hemisphere with marked mass effec t and approximately 1.2 cm of midline shift to the left. There is probably a small amount of intrave ntricular hemorrhage. No significant extraaxial hemorrhage. This report is in agreement with the preliminary report. POS: MP
--- NOTE | 2019-11-01 08:49 | PRG ---
DATE OF SERVICE: 11/01/2019 The patient is seen and examined. I agree with Farideh Spivey's evaluation on 11/01/2019. The patient is an 84-year-old male, well known to me from previous intracranial hemorrhage related to amyloid angiopathy, who was found down unresponsive. GCS was 4. He has since been intubated, but no medications are currently on board. The right pupil is at 6 mm and fixed and the left pupil is 2 mm. He has extensor posture on the left and some nonpurposeful movement on the right. CT scan shows massive parieto-occipital hemorrhage with substantial shift. IMPRESSION AND PLAN: Given the very poor clinical status and the huge and devastating intracranial hemorrhage, I recommend no intervention. I discussed in detail with the patient's family including his and daughters and they concur that he would not wish aggressive care in this situation. I discussed the case with the ER doctor, Dr. Mejia, who plans withdrawal of support and I concur with this plan. Job ID: [id number]
[2019-11-01] MEDS ORDERED: Lorazepam 2 MG/ML VIAL SLOW IVP PRN (12:23)
[2019-11-01] MEDS ORDERED: Rocuronium Bromide 10 MG/ML (10ML VIAL) ONE (12:24)
[2019-11-01] MEDS: Morphine 2 MG/ML SYRINGE SLOW IVP PRN ×3 (12:47→18:01)
[2019-11-01] MEDS ORDERED: Scopolamine 1.5 mg/72 hour Patch TOP SCH (18:00)
[2019-11-01 19:52] VITALS: BP 126/57
[2019-11-02 03:33] VITALS: TEMP 102
[2019-11-02] MEDS: Sodium Chloride 0.9% 1,000 ML IV SCH (03:48)
[2019-11-02] MEDS: Morphine 2 MG/ML SYRINGE SLOW IVP PRN (04:19)
--- NOTE | 2019-11-02 14:06 | DIS ---
DATE OF ADMISSION: 11/01/2019 DATE OF : 11/02/2019 SUMMARY: The patient is an 84-year-old male, known to us for evaluation of intracranial hemorrhage in August 2019. He improved in this event, but unfortunately returned on 11/01/2019, after being found down by his family. His repeat head CT showed a very large right parieto-occipital hemorrhage with substantial midline shift. His exam was very minimal. GCS was 4 on arrival. His right pupil was dilated and both were minimally reactive. He had extensor posturing on the left and no purposeful movement. He was visited by myself and Dr. Hernández, who also met with the family. We recommended no surgical intervention. Dr. Hernández discussed the case in detail with the patient's family including and daughter and they concur that the patient would not wish for aggressive care. The patient was transitioned to comfort measures on the Med/Surg floor. Palliative care and the Medicine team assisted us during his course. The patient passed peacefully with family at the bedside at 4:45 on 11/02/2019. Job ID: [id number] [facility]
--- NOTE | 2019-11-05 22:03 | PQF ---
VIKKI FLYNN JONATHAN A MD [id number] [facility] [id number] CLINICAL DOCUMENTATION CLARIFICATION FORM: POST DISCHARGE Addendum to original discharge summary date: ____ Late entry note date: __ DATE: 11/05/2019 ATTN:DARRELL HAIDER MD Please exercise your independent, professional judgment in responding to the clarification form. Clinical indicators are provided on the bottom of this form for your review Please check appropriate box(s): kindly clarify the substantial midline shift [ ] Cerebral edema [ ] Vasogenic edema [ x ] Compression of brain [ ] Other diagnosis [ ] Unable to determine In addition, please specify: Present on Admission (POA): [ x] Yes [ ] No [ ] Unable to determine For continuity of documentation, please document condition throughout progress notes and discharge summary. Thank You. CLINICAL INDICATORS - SIGNS / SYMPTOMS / LABS This is an 84 year old male who suffered a massive right parieto occipital intracranial hemorrhage with mass effect and midline shif.This is a devastating injury-Documented in H&P / by Oscar Shaikh MD [id number] in H&P 11/01 by Oscar Shaikh MD RISK FACTORS Right parieto occipital intracranial hemorrhage-Documented in H&P / by Oscar Shaikh MD TREATMENTS: Brain CT-on 11/01 Ativan 1 mg IV-Documented in medication snapshot Sodium chloride 1000 ml IV -Documented in medication snapshot Propofol 100mg IV-Documented in medication snapshot SAP Case Briefer Crystal [employer] Winform Viewer (This form is maintained as a part of the permanent medical record) 2014 [employer]. All Rights Reserved [email or web address] [phone] [email or web address]
== END 2019-11-02 07:35 | disposition expired | DRG 64 ==
LOC: ERS 00:57 → ERHOLD 01:29 → SURG A 11:23
PROVIDERS: ADMIT Neurological Surgery; ATTEND Neurological Surgery
PROC: 0BH17EZ Insertion of Endotracheal Airway into Trachea, Via Natural or Artificial Opening (ICD-10-PCS; principal; 2019-11-01)
PROC: 5A1935Z Respiratory Ventilation, Less than 24 Consecutive Hours (ICD-10-PCS; 2019-11-01)
PROC: 02HV33Z Insertion of Infusion Device into Superior Vena Cava, Percutaneous Approach (ICD-10-PCS; 2019-11-01)
DX: I62.9 Nontraumatic intracranial hemorrhage, unspecified (principal); G93.5 Compression of brain; E85.4 Organ-limited amyloidosis; I16.1 Hypertensive emergency; I69.254 Hemiplegia and hemiparesis following other nontraumatic intracranial hemorrhage affecting left non-dominant side; Z66 Do not resuscitate; Z51.5 Encounter for palliative care; I10 Essential (primary) hypertension; E78.5 Hyperlipidemia, unspecified; E11.9 Type 2 diabetes mellitus without complications; I68.0 Cerebral amyloid angiopathy; R40.2332 Coma scale, best motor response, abnormal flexion, at arrival to emergency department; R40.2212 Coma scale, best verbal response, none, at arrival to emergency department; R40.2112 Coma scale, eyes open, never, at arrival to emergency department; R29.732 NIHSS score 32; Z98.890 Other specified postprocedural states
CPT/HCPCS: 31500; 36415; 36416; 36556; 51702; 70450; 71045; 80053; 82550; 82805; 83605; 84484; 85025; 85610; 85730; 94002; 96365; 96366; 96367; C1769; J2270; J2704; J7050